=== PATIENT | female | born 1995 | race Caucasian/White ===

== ENCOUNTER 2018-11-13 22:37 | Emergency (ER) | payer SELFPAY ==
[~2018-11-13] VITALS: Ht 160 cm; Wt 58.2 kg
[2018-11-13 23:04] VITALS: BP 113/77
--- NOTE | 2018-11-14 01:06 | NUR ---
Call placed to number on file after attempting to Rm 3 times. Spoke with Sapna. She reports that she will return in the am around 10 am.
--- NOTE | 2018-11-14 01:11 | NUR ---
iNFORMED DR. LU.
[2018-11-14] MEDS ORDERED: AMOX-422 PO (15:33)
== END 2018-11-14 01:19 | disposition left against medical advice (07) ==
LOC: ER 22:38
DX: S61.552A Open bite of left wrist, initial encounter (principal); Z53.21 Procedure and treatment not carried out due to patient leaving prior to being seen by health care provider; W55.01XA Bitten by cat, initial encounter; Y93.89 Activity, other specified; Y92.89 Other specified places as the place of occurrence of the external cause; Y99.8 Other external cause status

== ENCOUNTER 2018-11-14 14:26 | Emergency (ER) | payer SELFPAY ==
[~2018-11-14] VITALS: Ht 160 cm; Wt 61.3 kg
[2018-11-14 14:31] VITALS: BP 123/73
[2018-11-14] MEDS ORDERED: CefTRIAXone 1000mg IM Kit (w/lidocaine diluent) IM ONE (15:30)
[2018-11-14] MEDS ORDERED: TETanus/Pertussis (Acell)/Diphther VAC/PF (Tdap-Adult) 0.5ml syringe IMVAC ONE (15:30)
[2018-11-14] MEDS ORDERED: AMOX-422 PO (15:33)
[2018-11-14 16:04] LABS: BASOPHILS % (AUTO) 0.5 % (0-1); EOSINOPHILS # (AUTO) 0.2 X10'3 (0-0.9); EOSINOPHILS % (AUTO) 2.8 % (0-6); HEMATOCRIT 37.1 % (35.0-45.0); HEMOGLOBIN 12.6 g/dl (12.0-16.0); LYMPHOCYTES # (AUTO) 2.2 X10'3 (1.1-4.8); LYMPHOCYTES % (AUTO) 25.8 % (21-51); MEAN CORPUSCULAR HEMOGLOBIN 30.9 PG (27.0-31.0); MEAN CORPUSCULAR VOLUME 90.9 FL (78-98); MEAN PLATELET VOLUME 8.5 FL (7.4-10.4); MONOCYTES # (AUTO) 0.6 X10'3 (0-0.9); MONOCYTES % (AUTO) 7.4 % (2-12); NEUTROPHILS # (AUTO) 5.3 X10'3 (1.8-7.7); NEUTROPHILS % (AUTO) 63.5 % (42-75); PLATELET COUNT 241 X10'3 (140-440); RED BLOOD COUNT 4.09 X10'6 (4.20-5.60); RED CELL DISTRIBUTION WIDTH 13.2 % (11.5-14.5); WHITE BLOOD COUNT 8.3 X10'3 (4.5-11.0)
[2018-11-14 16:20] LABS: ALANINE AMINOTRANSFERASE 22 U/L (12-78); ALBUMIN 3.7 G/DL (3.4-5.0); ALKALINE PHOSPHATASE 66 IU/L (46-116); ANION GAP 8 (8-16); ASPARTATE AMINO TRANSFERASE 9 U/L (10-37); BILIRUBIN,TOTAL 0.6 MG/DL (0.1-1.0); BLOOD UREA NITROGEN 7 MG/DL (7-18); BUN/CREATININE RATIO 9.7 (6.6-38.0); CALCIUM 8.9 MG/DL (8.5-10.1); CHLORIDE 105 MMOL/L (99-107); CREATININE 0.72 MG/DL (0.40-0.90); GLUCOSE 88 MG/DL (70-104); POTASSIUM 3.5 MMOL/L (3.5-5.1); SODIUM 139 MMOL/L (135-145); TOTAL CARBON DIOXIDE 25.9 MMOL/L (24-32); TOTAL PROTEIN 7.4 G/DL (6.4-8.2); eGFR > 90 ML/MIN
== END 2018-11-14 16:07 | disposition home or self-care (01) ==
LOC: ER 14:27
DX: S61.452A Open bite of left hand, initial encounter (principal); L03.114 Cellulitis of left upper limb; Z79.2 Long term (current) use of antibiotics; W55.01XA Bitten by cat, initial encounter; Y93.89 Activity, other specified; Y92.89 Other specified places as the place of occurrence of the external cause; Y99.8 Other external cause status
CPT/HCPCS: 36415; 80053; 85025; 90471; 90715; 96372; 99283; J0696

== ENCOUNTER 2018-12-22 14:53 | Emergency (ER) | payer MEDICAID, OTHER ==
[~2018-12-22] VITALS: Ht 160 cm; Wt 55.9 kg
[2018-12-22 15:05] VITALS: BP 114/79
[2018-12-22] MEDS ORDERED: ibuprofen tablet 400 MG TABLET PO ONE (15:35)
[2018-12-22] MEDS ORDERED: acetaminophen 325mg tablet PO ONE (15:35)
--- NOTE | 2018-12-22 15:57 | NUR ---
pt showed me her paperwork from the police and the police report number on the paper is [id number]. officer Gutierrez Katz
--- NOTE | 2018-12-22 16:18 | NUR ---
CALLED [address] AND TALKED WITH ANTHONY AND SHE IS NOW TALKING WITH THE PT ABOUT SITUATION AND THE PLAN. WAITING ON DECISION FROM PHONE CALL.
== END 2018-12-22 18:25 | disposition home or self-care (01) ==
LOC: ER 14:54
DX: M54.2 Cervicalgia (principal); Y04.0XXA Assault by unarmed brawl or fight, initial encounter; Y93.89 Activity, other specified; Y92.89 Other specified places as the place of occurrence of the external cause; Y99.9 Unspecified external cause status
CPT/HCPCS: 99284